=== PATIENT | male | born 1945 | race Caucasian/White ===

== ENCOUNTER 2024-03-21 16:12 | Emergency (ER) | payer MEDICARE, OTHER, SELFPAY ==
[2024-03-21 16:14] VITALS: BP 140/82
[2024-03-21 16:38] LABS: % Basophils 0.3 % (0-2); % Eosinophils 0.4 % (0-6); % Immature Granulocytes 0.4 % (0-0.5); % Lymphocytes 8.9 % (20.5-51.1); % Monocytes 7.8 % (1.7-9.3); % Neutrophils 82.2 % (42.2-75.2); Absolute Eosinophils 0.1 10^3/uL (0-0.7); Absolute Immature Granulocytes 0.1 10^3/uL (0-0.05); Absolute Lymphocytes 1.2 10^3/uL (1.2-3.4); Absolute Monocytes 1.1 10^3/uL (0.1-0.6); Absolute Neutrophils 11.4 10^3/uL (1.4-6.5); Hematocrit 43.4 % (39.0-52.0); Hemoglobin 15.2 g/dL (13.0-18.0); Mean Corpuscular Hgb 29.7 pg (27.0-31.0); Mean Corpuscular Volume 84.9 fL (80.0-94.0); Mean Platelet Volume 9.6 fL (7.4-10.4); Nucleated Red Blood Cells % 0 % (-); Platelet Count 161 10^3/uL (130-400); Red Blood Cell Count 5.11 10^6/uL (4.70-6.10); Red Cell Dist. Width 12.8 % (11.5-14.5); White Blood Cell Count 13.9 10^3/uL (4.8-10.8)
[2024-03-21 16:56] LABS: COVID-19 Antigen Negative (Negative)
[2024-03-21 17:06] LABS: ALT (SGPT) 22 U/L (0-50); AST (SGOT) 31 U/L (17-59); Albumin 4.6 g/dl (3.5-5.0); Alkaline Phosphatase 82 U/L (38-126); Blood Urea Nitrogen 16 mg/dl (9-20); Calcium 9.7 mg/dl (8.4-10.2); Carbon Dioxide 25 mmol/L (22-30); Chloride 97 mmol/L (98-107); Glucose 125 mg/dl (70-99); Potassium 3.9 mmol/L (3.5-5.1); Sodium 135 mmol/L (135-145); Total Bilirubin 2.2 mg/dl (0.2-1.3); Total Protein 7.4 g/dl (6.3-8.2); eGFR > 60.00
[2024-03-21 19:27] VITALS: BP 135/65
[2024-03-21 19:31] VITALS: BMI 24.8
[2024-03-21 20:00] VITALS: BP 134/84
[2024-03-21 20:04] LABS: Urine Albumin Trace (Neg - Trace); Urine Bilirubin Negative (Negative); Urine Character Slightly Cloudy (Clear); Urine Color Yellow; Urine Glucose Negative (Negative); Urine Ketone Negative (Negative); Urine Leukocyte 2+ (Negative); Urine Nitrite Negative (Negative); Urine Occult Blood 2+ (Negative); Urine Specific Gravity 1.025 (<1.030); Urine Urobilinogen Negative (Neg - 1+)
[2024-03-21 20:31] LABS: Urine Bacteria Many (Negative); Urine Red Blood Cell 0-2 /HPF (0-2); Urine Squamous Cell 0-2 /LPF (Few); Urine White Cell 30-40 /HPF (0-5)
--- NOTE | 2024-03-21 20:40 | ED.GENMED ---
History of Present Illness
General
Chief Complaint: Weakness
Source: patient
Exam Limitations: none
Time Seen by Provider: 03/21/24 20:24
Nursing documentation reviewed up to this point in time: agreed with
History of Present Illness
History of Present Illness:
79-year-old male presents with fatigue weakness joint aches, usually very active he swims often had a hard time swimming today, no nausea or vomiting has had increased urinary frequency, no history of A-fib
Past History
Past History
ED Past Medical History: HTN; Negative Arrthythmia
ED Past Surgical History: Appendectomy (Age 5); Negative Urological
Social History
Tobacco: Non-smoker
Alcohol: None
Drug: None
Employment: Retired
Review of Systems
Review of Systems
All Other Systems: Not applicable
Constitutional: Reports fatigue; Denies fever
Respiratory: Reports no symptoms
Cardiac: Reports no symptoms
ABD/GI: Reports no symptoms
: Reports frequency and urgency; Denies incontinence or difficulty voiding
Musculoskeletal: Reports joint pain, muscle pain and muscle stiffness
Neurological: Reports weakness
Endocrine: Reports no symptoms
Phy Exam
Physical Exam
Physical Exam:
Physical Exam
General: Elderly male feels warm
Neck: No jaw
Heart: Rapid and irregular
Lungs: no acute respiratory distress. clear bilaterally
Abdomen: Nontender
Neuro: alert and oriented. no focal neurological deficits
Skin: no rash
Psychiatric: well kept. interactive and cooperative
Extremities: no edema.
Course
Orders/Labs/Results
Orders:
Orders
03/21/24 16:32
COVID-19 Antigen Urgent
Source: Nasal Swab
Complete Blood Count/With Diff Urgent
Comprehensive Metabolic Panel Urgent
Influenza A+B Rapid Molecular Urgent
[facility] Source: Nasal Swab
Specimen Description:
03/21/24 19:29
Electrocardiogram (*1) Urgent
Reason for Study: Abnormal EKG
EKG- Treatment ONCE
03/21/24 19:53
Urinalysis Reflex To Culture Urgent
Date Specimen was Collected: 03/21/24
Time Specimen was Collected: 19:29
Urine Microscopic Reflex Cult Urgent
Urine Culture Urgent
[facility] Source: U
Specimen Description:
Obtained by: Random
Date Specimen was Collected: 03/21/24
Time Specimen was Collected: 19:29
03/21/24 20:37
CefTRIAXone [Rocephin] 1,000 mg IV NOW STA
03/21/24 20:38
CT Abd/pel Without Iv Or Oral Urgent
Comment:
Reason For Exam: uti sepsisi
0.9% Sodium Chloride 1000 ml [Nss] 1,000 ml IV BOLUS
Acetaminophen [Tylenol] 650 mg PO NOW STA
03/21/24 20:51
Blood Culture Urgent
[facility] Source: Blood/Venous
Specimen Description:
Abnormal Lab Results
03/21/24 03/21/24
16:32 19:53
WBC 13.9 H 10^3/uL
(4.8-10.8)
Abs Immat Gran (auto) 0.1 H 10^3/uL
(0-0.05)
Absolute Neuts (auto) 11.4 H 10^3/uL
(1.4-6.5)
Absolute Monos (auto) 1.1 H 10^3/uL
(0.1-0.6)
Neutrophils % 82.2 H %
(42.2-75.2)
Lymphocytes % 8.9 L %
(20.5-51.1)
Chloride 97 L mmol/L
(98-107)
Glucose 125 H mg/dl
(70-99)
Total Bilirubin 2.2 H mg/dl
(0.2-1.3)
Ur Occult Blood Reflex 2+ A
(Negative)
Leukocyte Esterase Rfl 2+ A
(Negative)
Urine WBC (Reflex) 30-40 A /HPF
(0-5)
Urine Bacteria (Reflex) Many A
(Negative)
03/21/24 16:32
03/21/24 16:32
Vital Signs
Initial and Last Documented VS:
Initial Vital Signs
Temp Pulse Resp BP Pulse Ox
97.6 F 58 18 140/82 95
03/21/24 16:14 03/21/24 16:14 03/21/24 16:14 03/21/24 16:14 03/21/24 16:14
Last Documented Vital Signs
Temp Pulse Resp BP Pulse Ox
99.7 F 108 26 136/78 96
03/21/24 19:23 03/21/24 21:00 03/21/24 21:00 03/21/24 21:00 03/21/24 20:45
MDM/Problems Addressed
Differential Diagnosis Includes:
Viral syndrome UTI stone influenza
MDM/Problems Addressed:
Body aches joint aches new onset A-fib
*Radiology
Radiology exam reviewed: radiology read reviewed
*Pulse Oximetry
Patient hypoxic: no
*EKG
Interpretation: abnormal
Comparison EKG: no comparison EKG present
Heart Rate: 118
Rate: tachycardiac
Rhythm: a-fib
Ischemia: non-specific ST changes
*Grab Jack Man Interpretation
Rate: tachycardiac
Interpretation: abnormal
Heart Rate: 118
Rhythm: a-fib
*Critical Care Note
Total Time (30-74mins, 75-104mins- exclusive of procedures): Not Applicable
Update Note
Update Note:
Update elderly is weak suspect infection with urinary source, will check cultures, also think is a new onset AF start fluids Tylenol antibiotics
Update patient feeling much better, heart rate has normalized still looks to be in A-fib, he lives alone, he would like to go home, will hold on anticoagulation at this point, this all could be reactive from his infection
ED Attending Note
-
Portions of this chart may have been created with voice recognition software.� Occasional wrong word or��sound alike� substitutions may have occurred due to the inherent limitations of voice recognition software.
Discharge Plan
Departure
Patient Disposition: Home (Routine Discharge)
Date of Disposition: 03/21/24
Time of Disposition: 21:48
Patient with high blood pressure during this ER visit?: No
Condition: Good
Discharge Problem:
Acute UTI
Referrals:
Chapis Jorge MD [Family Provider] - Next open appointment
Activity Restrictions/Additional Instructions:
Drink plenty of fluids, antibiotics as prescribed, Tylenol as needed for fever body aches follow-up with your family doctor return to the ER for worsening symptoms
Interventions
Interventions:
*Risk Screen - Suicide Last Done: 03/21/24 16:14
*General Assessment Last Done: 03/21/24 16:14
*Neglect/Abuse Screening Last Done: 03/21/24 21:07
ED- Fall Risk Assessment Last Done: 03/21/24 19:31
*ED COVID-19 Vaccine History Last Done: 03/21/24 19:26
ED- Cardiac Assessment Last Done: 03/21/24 19:31
ED- Neurological Assessment Last Done: 03/21/24 19:31
ED- Pulmonary Assessment Last Done: 03/21/24 19:31
Discharge Date and Time
Print Language: UPPER SORBIAN
[2024-03-21] MEDS: TYLENOL 650 MG PO (20:57)
[2024-03-21] MEDS: ROCEPHIN 1000 MG IV (20:57)
[2024-03-21] MEDS: NSS 1000 IV (20:57)
[2024-03-21 21:00] VITALS: BP 136/78
[2024-03-21 22:00] VITALS: BP 125/78
== END 2024-03-21 22:29 | disposition home or self-care (01) ==
LOC: EMR 16:12
PROVIDERS: EMERGENCY PHYSICIAN Emergency Medicine; FAMILY PHYSICIAN Hospitalist
DX: N39.0 Urinary tract infection, site not specified (principal); R94.31 Abnormal electrocardiogram [ECG] [EKG]; I10 Essential (primary) hypertension; Z90.49 Acquired absence of other specified parts of digestive tract; Z60.2 Problems related to living alone
CPT/HCPCS: 96374; 96361; 99284; 74176; 80053; 81003; 81015; 85025; 87040; 87086; 87088; 87186; 87502; 87811; 93005